=== PATIENT | female | born 2000 ===

== ENCOUNTER 2022-07-31 18:31 | Emergency (ER) | payer SELFPAY ==
[2022-07-31 19:44] VITALS: BP 128/83; PULSE 101; RESP 16; TEMP 36.8; O2SAT 100
--- NOTE | 2022-07-31 19:54 | ECG_ITS ---
Measurements Intervals [place] Rate: 91 P: 49 NC: 145 QRS: 18 QRSD: 86 T: 30 QT: 258 QTc: 318 Interpretive Statements SINUS RHYTHM WITH SINUS ARRHYTHMIA NONSPECIFIC T-WAVE ABNORMALITY- INFERIOR LEADS BORDERLINE ECG NO PREVIOUS ECG AVAILABLE FOR COMPARISON Electronically Signed On 07-31-2022 21:44:15 CDT by Aaron Cornell D.O.
[2022-07-31 21:02] LABS: Basophils Absolute Auto 0.1 K/mm3 (0.0-0.1); Basophils Percent Auto 0.9 % (0.2-1.2); Eosinophils Absolute Auto 0.1 K/mm3 (0-0.3); Eosinophils Percent Auto 1.4 % (0-4.4); Hematocrit 40.2 % (37.0-47.0); Hemoglobin 13.2 g/dL (12.0-15.0); Immature Granulocyte Absolute 0.02 K/mm3 (0.00-0.031); Immature Granulocyte Percent A 0.3 % (0-0.5); Lymphocytes Absolute Auto 1.86 K/mm3 (0.9-3.2); Lymphocytes Percent Auto 28.3 % (18.3-44.2); Mean Corpuscular HGB Conc 32.8 g/dl (32-36); Mean Corpuscular Hemoglobin 27.2 pg (26-34); Mean Corpuscular Volume 82.7 fl (80-100); Mean Platelet Volume 10.8 fl (7.4-10.4); Monocytes Absolute Auto 0.7 K/mm3 (0.1-0.6); Neutrophils Absolute Auto 3.9 K/mm3 (1.3-6.7); Neutrophils Percent Auto 59.1 % (45.5-73.1); Platelet Count Result 349 k/mm3 (150-375); Red Blood Count 4.86 M/mm3 (4.2-5.4); Red Cell Distribution Width 14.5 % (11.5-14.5); White Blood Count 6.6 K/mm3 (4.5-10.0)
[2022-07-31 21:13] LABS: Alanine Aminotransferase 26 U/L (6-35); Albumin Level 4.6 g/dL (3.5-5.1); Alkaline Phosphatase 87 U/L (38-126); Anion Gap 8 mmol/L (8-16); Aspartate Amino Transferase 25 U/L (14-36); Bilirubin,Total 0.5 mg/dL (0.2-1.3); Blood Urea Nitrogen 7 mg/dL (7-17); Calcium 9.7 mg/dL (8.4-10.2); Carbon Dioxide 28 mmol/L (22-30); Chloride 101 mmol/L (98-107); Estimated Glomerular Filt Rate > 60; Glucose 98 mg/dL (65-110); Potassium 3.9 mmol/L (3.4-5.0); Sodium 137 mmol/L (137-145)
[2022-07-31 22:22] VITALS: BP 137/86; PULSE 94; RESP 18; TEMP 37.1; O2SAT 100
--- NOTE | 2022-08-01 00:01 | PC.NURSE ---
Patient up to triage desk demanding to be told her lab results and provided information on wait times. Patient informed that this RN would be unable to provide lab results as it is beyond the RN's scope and that she would have to wait to see a provider in an exam room. This RN apologized for the lengthy wait time. Patient was informed that wait times are not provided because of the pure nature of the ER. Patient was unhappy with this response and stated that she was going to leave and go somewhere else for care. The patient was encouraged to stay but patient's visitor encouraged her to leave the ER. Patient encouraged to return with any worsening sx or additional complaints.
== END 2022-08-01 00:41 | disposition left against medical advice (07) ==
PROVIDERS: Emergency Provider Emergency Medicine
DX: R55 Syncope and collapse (principal)
CPT/HCPCS: 36415; 80053; 81025; 85025; 93005; 99199